=== PATIENT | male | born 1970 | race Two or more races ===

== ENCOUNTER 2021-10-15 03:03 | Emergency (ER) | payer OTHER ==
[~2021-10-15] VITALS: Ht 175.3 cm; Wt 90.9 kg
[2021-10-15 03:08] VITALS: BP 144/51
[2021-10-15 04:03] LABS: COVID AG,FIA SOURCE NASOPHARYNGEAL
[2021-10-15 04:27] LABS: INFLUENZA TYPE A NEGATIVE FOR TYPE A (NEGATIVE); INFLUENZA TYPE B NEGATIVE FOR TYPE B (NEGATIVE)
== END 2021-10-15 08:30 | disposition left against medical advice (07) ==
LOC: EMS 03:08
DX: R05.9 Cough, unspecified (principal); Z20.822 Contact with and (suspected) exposure to COVID-19; Z86.16 Personal history of COVID-19
CPT/HCPCS: 71045; 87804; 99284